=== PATIENT | male | born 1980 | race Caucasian/White ===

== ENCOUNTER 2024-11-15 11:45 | Observation (INO) ==
[2024-11-15] MEDS: SODIUM CHLORIDE 0.9% 1,000 ML IV SCH ×2 (12:01→15:11)
--- NOTE | 2024-11-15 12:04 | Emergency Department Note ---
Impression & Plan Sepsis, Acute hypoxic respiratory failure, Pneumonia, Aspiration into airway ED Provider Note NAME: SB CHRISTOPHER AGE: 44 SEX: M : 1980 ARRIVES VIA: Walk-In INFORMANT: Patient ED PROVIDER(S): Jeevan Georges DO CHIEF COMPLAINT: weak s/p scope HPI: Patient is a 44-year-old male who presents to the ER for weakness. Patient was just scoped for routine colonoscopy today. Following the scope he was in postop and found to be hypoxic. Was placed on oxygen and then given a neb treatment and hypoxia resolved and was discharged. notes that on the way home he is shaking and felt short of breath and consequently did come in. He is complaining of left lower lobe chest pain as well as diffuse myalgias and arthralgias. Admits to an upset stomach. No dysuria, urgency, or frequency. No other exacerbating or remitting factors. ADDITIONAL HISTORY OBTAINED: Per HPI Chronic Medical/Social Conditions Affecting Care: Per HPI PAST MEDICAL HISTORY:See Below PAST SURGICAL HISTORY:See Below FAMILY HISTORY:See Below SOCIAL HISTORY:See Below HOME MEDICATIONS:See Below ALLERGIES:See Below VITALS:See Below PHYSICAL EXAMINATION: GENERAL: Laying in bed, ill-appearing, alert moving all extremities EYE EXAM: normal conjunctiva. PERRL and EOM's grossly intact. OROPHARYNX: mucous membranes are moist NECK: supple, no nuchal rigidity, no adenopathy, non-tender LUNGS: Clear to auscultation. Normal chest wall mechanics HEART: no murmurs, S1 normal and S2 normal ABDOMEN: abdomen soft, non-tender, normo-active bowel sounds, no masses, no rebound or guarding. BACK: Back is symmetrical on inspection and there is no deformity, no midline tenderness, no CVA tenderness. SKIN: no rashes and no bruising UPPER EXTREMITIES: upper extremities are grossly normal. LOWER EXTREMITIES: Calves are equal bilaterally NEURO EXAM: Normal sensorium, cranial nerves II-XII grossly intact, normal speech, no gross weakness of arms, no gross weakness of legs. MEDICAL DECISION MAKING: Patient is a 44-year-old male who presents ER for the above-stated complaint. IV was established blood work was obtained. Labs show leukocytosis 17,000. No significant anemia. INR unremarkable. BMP with a lactate which was elevated. LFTs and bilirubin were fairly unremarkable. Viral panel was negative. Per patient's who provided additional history patient was discharged from [facility] after neb treatment. He was hypoxic after the scope and the neb treatment resolved this. They were going home and the patient was feeling worse and consequently he came in here. Upon arrival he is found to be hypotensive with systolic pressures in the 60s and hypoxic at 80%. He was given 2 L of IV fluids as well as IV antibiotics. Chest x-ray was obtained and did confirm a left mid lobe infiltrate. Case was discussed with the hospitalist for further evaluation management treatment. Blood pressures did rebound. Patient did feel significantly better. Consults/Care Managements Discussions: Per [facility] Triage Nursing notes reviewed. Limited review of prior medical records performed Vital Signs: reviewed and remarkable for hypoxic, hypotensive Differential diagnosis: Differential diagnosis includes etiologies such as sepsis, UTI, pneumonia, metabolic, electrolyte abnormalities, cardiac sources, intracerebral event, toxicologic, neurological, as well as others were entertained. ER treatment provided: See below Diagnostics interpreted by me include EKG and cardiac monitoring as listed below: -Cardiac Monitoring: An order was placed for continuous cardiac monitoring. The monitor shows a rate of 80 with sinus rhythm. -ECG: none -Laboratory studies:Interpreted by me as stated above in MDM and shown below. Imaging studies: Xrays: As interpreted by me: Portable AP upright 1 view of the chest shows left mid lobe infiltrate CTs show: none Procedures:none Critical Care: I have personally spent 75 minutes of critical care time in the direct management of this patient. This includes bedside care, interpretation of diagnostic studies, and testing, discussion with consultants, patient, and family members, and other required patient management activities. This 75 minutes is in excess of all separately billable procedures. Past Med/Surg History Problem List (Updated 11/15/24 @ 17:18 by Jeevan Georges DO) Aspiration into airway (Acute) Pneumonia (Acute) Acute hypoxic respiratory failure (Acute) Sepsis (Acute) Social History Smoking Status: Never smoker Second Hand Exposure: No; Do You Dip or Chew Tobacco: No; Hx Alcohol Use: Yes Alcohol type: beer Hx Substance Use: No Preferred Language: [place] Communication Ability: Effective Director Of Industrial Relations Required: No Beliefs That Will Affect Care: None Current Living Situation: Spouse Feels Safe at Home: Yes Assistive Devices: None Allergies Allergies Allergy/AdvReac Type Severity Reaction Status Date / Time No Known Allergies Allergy Unverified 11/15/24 13:15 Home Meds Home Medications Medication Instructions Recorded Confirmed Fish Oil 1 cap PO DAILY 11/15/24 11/15/24 Glucosamine 1 tab PO DAILY 11/15/24 11/15/24 sodium,potassium,mag sulfates 17.5 1 oz PO UD 11/15/24 11/15/24 gram-3.13 gram-1.6 gram oral soln tirzepatide (weight loss) 7.5 7.5 mg subcut WK 11/15/24 11/15/24 mg/0.5 mL subcutaneous pen injector (Zepbound) Results & Data (ED) Vital Signs Vital Signs - 24 hr 11/15/24 11:46 11/15/24 12:10 11/15/24 12:15 Temperature 36.4 C L Temperature Source Oral Pulse Rate 84 99 H Pulse Rate from SpO2 Sensor 95 H Respiratory Rate 19 26 H Respiratory Effort / Characteristics Non-Labored Spontaneous Respiratory Depth Normal Respiratory Pattern Regular Blood Pressure 64/41 L 122/66 Blood Pressure Mean 48 89 Blood Pressure Position Sitting Pulse Oximetry 86 L 98 Oxygen Delivery Method Room Air Sepsis Recent Fever Within 48 Hours No Sepsis New/Unexplained Change in Mental Status No Sepsis Action Taken by Nursing No Action Required 11/15/24 12:15 11/15/24 12:21 11/15/24 12:21 Temperature Temperature Source Pulse Rate Pulse Rate from SpO2 Sensor Respiratory Rate Respiratory Effort / Characteristics Respiratory Depth Respiratory Pattern Blood Pressure 102/76 102/76 102/76 Blood Pressure Mean 92 83 83 Blood Pressure Position Pulse Oximetry Oxygen Delivery Method Sepsis Recent Fever Within 48 Hours Sepsis New/Unexplained Change in Mental Status Sepsis Action Taken by Nursing 11/15/24 12:23 11/15/24 12:25 11/15/24 12:25 Temperature Temperature Source Pulse Rate 101 H Pulse Rate from SpO2 Sensor Respiratory Rate Respiratory Effort / Characteristics Respiratory Depth Respiratory Pattern Blood Pressure 120/72 120/72 Blood Pressure Mean 77 77 Blood Pressure Position Pulse Oximetry Oxygen Delivery Method Sepsis Recent Fever Within 48 Hours Sepsis New/Unexplained Change in Mental Status Sepsis Action Taken by Nursing 11/15/24 12:27 11/15/24 12:30 11/15/24 12:30 Temperature Temperature Source Pulse Rate 88 Pulse Rate from SpO2 Sensor 86 Respiratory Rate 24 Respiratory Effort / Characteristics Respiratory Depth Respiratory Pattern Blood Pressure 117/71 117/71 Blood Pressure Mean 84 84 Blood Pressure Position Pulse Oximetry 100 Oxygen Delivery Method Sepsis Recent Fever Within 48 Hours Sepsis New/Unexplained Change in Mental Status Sepsis Action Taken by Nursing 11/15/24 12:49 Temperature 37.3 C Temperature Source Oral Pulse Rate Pulse Rate from SpO2 Sensor Respiratory Rate Respiratory Effort / Characteristics Respiratory Depth Respiratory Pattern Blood Pressure Blood Pressure Mean Blood Pressure Position Pulse Oximetry Oxygen Delivery Method Sepsis Recent Fever Within 48 Hours Sepsis New/Unexplained Change in Mental Status Sepsis Action Taken by Nursing Laboratory Data 11/15/24 11:59 11/15/24 11:59 Lab Results 11/15/24 11/15/24 11/15/24 Range/Units 11:54 11:59 12:10 WBC 17.61 H (4.8-10.8) K/ul RBC 5.75 (4.70-6.10) M/uL Hgb 17.7 (14.0-18.0) g/dl POC Hgb 16.7 (14.0-18.0) g/dl Hct 48.2 (42.0-52.0) % POC Hct 49 (42-52) % MCV 83.8 (80.0-100.0) fL MCH 30.8 (25.0-34.0) pg MCHC 36.7 H (32.0-36.0) g/dL RDW Std Deviation 37.0 (36.4-46.3) fL RDW Coeff of Emmanuel 12.3 (11.5-14.5) % Plt Count 285 (130-400) K/uL MPV 9.5 (9.4-12.4) fL Immature Gran % (Auto) 0.4 % Neut % (Auto) 83.7 % Lymph % (Auto) 9.8 % Banks % (Auto) 5.5 % Eos % (Auto) 0.2 % Baso % (Auto) 0.4 % Neut # (Auto) 14.75 H (1.40-6.50) K/uL Lymph # (Auto) 1.73 (1.20-3.40) K/uL Banks # (Auto) 0.96 H (0.11-0.59) K/uL Eos # (Auto) 0.03 (0.00-0.50) K/uL Baso # (Auto) 0.07 (0.00-0.20) K/uL Immature Gran # (Auto) 0.07 (0.01-0.20) K/uL PT 10.9 (9.0-12.0) Seconds INR 1.0 (0.9-1.1) POC Sodium 141 (135-144) mmol/L Sodium 140 (136-145) mmol/L POC Potassium 3.6 (3.3-5.0) mmol/L Potassium 3.7 (3.5-5.1) mmol/L POC Chloride 100 L (101-112) mmol/L Chloride 103 (98-107) mmol/L Carbon Dioxide 29 (21-32) mmol/L POC Total CO2 25 (24-31) mmol/L Anion Gap 8 (3-11) POC Anion Gap 20.0 (16-25) mmol/L POC BUN 19 H (7-18) mg/dl BUN 19 (6-23) mg/dl Creatinine 1.08 (0.6-1.4) mg/dl POC Creatinine 1.3 (0.6-1.3) mg/dl Est Cr Clr Drug Dosing Not Reportable eGFR 86.24 BUN/Creatinine Ratio 17.6 (10-20) Glucose 114 H (70-99(Fasting)) mg/dl POC Glucose (other) 115 H (70-99) mg/dl Lactate 3.1 H* (0.4-2.0) mmol/L Calcium 9.3 (8.6-10.3) mg/dl POC Ioniz Calcium Eliana 1.18 (1.12-1.32) mmol/l Magnesium 1.9 (1.7-2.4) mg/dl Total Bilirubin 2.2 H (0.2-1.0) mg/dl Direct Bilirubin 0.3 H (0-0.2) mg/dl AST 26 (13-39) U/L ALT 24 (7-52) U/L Alkaline Phosphatase 42 (34-104) U/L Troponin I High Sens 3.4 (0-20) pg/ml Total Protein 7.0 (6.0-8.3) gm/dl Albumin 4.4 (3.4-5.0) gm/dl Procalcitonin 0.06 (0-0.5) ng/ml SARS-CoV-2 (PCR) (Negative) Influenza Type A (PCR) (Neg) Influenza Type B (PCR) (Neg) RSV (RT-PCR) (Neg) 11/15/24 Range/Units 12:12 WBC (4.8-10.8) K/ul RBC (4.70-6.10) M/uL Hgb (14.0-18.0) g/dl POC Hgb (14.0-18.0) g/dl Hct (42.0-52.0) % POC Hct (42-52) % MCV (80.0-100.0) fL MCH (25.0-34.0) pg MCHC (32.0-36.0) g/dL RDW Std Deviation (36.4-46.3) fL RDW Coeff of Emmanuel (11.5-14.5) % Plt Count (130-400) K/uL MPV (9.4-12.4) fL Immature Gran % (Auto) % Neut % (Auto) % Lymph % (Auto) % Banks % (Auto) % Eos % (Auto) % Baso % (Auto) % Neut # (Auto) (1.40-6.50) K/uL Lymph # (Auto) (1.20-3.40) K/uL Banks # (Auto) (0.11-0.59) K/uL Eos # (Auto) (0.00-0.50) K/uL Baso # (Auto) (0.00-0.20) K/uL Immature Gran # (Auto) (0.01-0.20) K/uL PT (9.0-12.0) Seconds INR (0.9-1.1) POC Sodium (135-144) mmol/L Sodium (136-145) mmol/L POC Potassium (3.3-5.0) mmol/L Potassium (3.5-5.1) mmol/L POC Chloride (101-112) mmol/L Chloride (98-107) mmol/L Carbon Dioxide (21-32) mmol/L POC Total CO2 (24-31) mmol/L Anion Gap (3-11) POC Anion Gap (16-25) mmol/L POC BUN (7-18) mg/dl BUN (6-23) mg/dl Creatinine (0.6-1.4) mg/dl POC Creatinine (0.6-1.3) mg/dl Est Cr Clr Drug Dosing eGFR BUN/Creatinine Ratio (10-20) Glucose (70-99(Fasting)) mg/dl POC Glucose (other) (70-99) mg/dl Lactate (0.4-2.0) mmol/L Calcium (8.6-10.3) mg/dl POC Ioniz Calcium Eliana (1.12-1.32) mmol/l Magnesium (1.7-2.4) mg/dl Total Bilirubin (0.2-1.0) mg/dl Direct Bilirubin (0-0.2) mg/dl AST (13-39) U/L ALT (7-52) U/L Alkaline Phosphatase (34-104) U/L Troponin I High Sens (0-20) pg/ml Total Protein (6.0-8.3) gm/dl Albumin (3.4-5.0) gm/dl Procalcitonin (0-0.5) ng/ml SARS-CoV-2 (PCR) NEGATIVE (Negative) Influenza Type A (PCR) Negative (Neg) Influenza Type B (PCR) Negative (Neg) RSV (RT-PCR) Negative (Neg) Administered Medications Sodium Chloride (Nss) 1,000 mls @ 100 mls/hr IV .Q10H JERRI Stop: 11/16/24 13:29 Last Admin: 11/15/24 15:11 Dose: 100 mls/hr Documented By: BUCKY Sodium Chloride (Nss) 1,000 mls @ 999 mls/hr IV .Q1H1M ONE Stop: 11/15/24 17:41 Last Admin: 11/15/24 16:50 Dose: 999 mls/hr Documented By: BUCKY Discontinued Medications Albuterol (Albuterol 0.083% Nebu Soln 3 Ml Vial) 2.5 mg NEB Q6H JERRI; Protocol Stop: 12/15/24 13:14 Last Admin: 11/15/24 14:51 Dose: Not Given Documented By: ANGELITA Sodium Chloride (Nss) 1,000 mls @ 999 mls/hr IV .Q1H1M JERRI Stop: 11/15/24 14:00 Last Infusion: 11/15/24 13:20 Dose: Infused Documented By: Admin: 11/15/24 12:05 Dose: 999 mls/hr Documented By: Infusion: 11/15/24 12:05 Dose: Infused Documented By: Admin: 11/15/24 12:01 Dose: 999 mls/hr Documented By: ADAMARIS Piperacillin Sod/Tazobactam Sod (Zosyn) 4.5 gm in 100 mls @ 200 mls/hr IV NOW ONE; Protocol Stop: 11/15/24 13:02 Last Infusion: 11/15/24 13:20 Dose: Infused Documented By: Admin: 11/15/24 12:43 Dose: 200 mls/hr Documented By: MICHEL Ketorolac Tromethamine (Ketorolac Tromethamine 15 Mg/Ml Vial) 15 mg IV NOW ONE Stop: 11/15/24 12:12 Last Admin: 11/15/24 12:16 Dose: 15 mg Documented By: BRIANNAW Morphine Sulfate (Morphine Sulfate 4 Mg/Ml 1 Ml Carp\Vial) 4 mg IV NOW STA Stop: 11/15/24 12:12 Last Admin: 11/15/24 12:16 Dose: 4 mg Documented By: MICHEL Ondansetron HCl (Ondansetron Inj 2 Mg/Ml 2 Ml Vial) 4 mg IV NOW STA Stop: 11/15/24 12:12 Last Admin: 11/15/24 12:16 Dose: 4 mg Documented By: MICHEL Imaging Data Radiologist's Impression: Chest X-Ray 11/15/24 11:57 XR chest 1V portable CLINICAL HISTORY: Sepsis COMPARISON STUDY: None FINDINGS: Heart size and pulmonary vasculature are normal. There is patchy consolidation at the left lower lung. No pleural effusion or pneumothorax. IMPRESSION: Pneumonia on the left. Follow-up to resolution recommended. ACT 112: Negative or not required by law. Electronically signed by: Manpreet Porter M.D. 11/15/2024 12:23 PM Discharge Plan Visit Data Chief Complaint: GI Assessment Stated Complaint: GI ASSESSMENT ED Provider: Jeevan Georges Discharge Problem: Sepsis, Acute hypoxic respiratory failure, Pneumonia, Aspiration into airway Patient Disposition: Admitted As Inpatient Discharge Instructions Interventions: ED Discharge Assessment Last Done: 11/15/24 14:10 Discharge Problem: Sepsis Qualifiers: Sepsis type: sepsis due to unspecified organism Sepsis acute organ dysfunction status: unspecified Qualified Code(s): A41.9 - Sepsis, unspecified organism Pneumonia Qualifiers: Pneumonia type: due to unspecified organism Laterality: unspecified laterality Lung location: unspecified part of lung Qualified Code(s): J18.9 - Pneumonia, unspecified organism Aspiration into airway Qualifiers: Encounter type: initial encounter Qualified Code(s): T17.908A - Unspecified foreign body in respiratory tract, part unspecified causing other injury, initial encounter
[2024-11-15] MEDS: MoRPHine SULFATE 4 MG/ML 1 ML CARP\\VIAL IV STA (12:16)
[2024-11-15] MEDS: ONDANSETRON INJ 2 MG/ML 2 ML VIAL IV STA (12:16)
[2024-11-15] MEDS: KETOROLAC TROMETHAMINE 15 MG/ML VIAL IV ONE (12:16)
[2024-11-15 12:18] LABS: Basophils # (auto) 0.07 K/uL (0.00-0.20); Basophils % (auto) 0.4 %; Eosinophils # (auto) 0.03 K/uL (0.00-0.50); Eosinophils % (auto) 0.2 %; Hematocrit (blood only) 48.2 % (42.0-52.0); Hemoglobin 17.7 g/dl (14.0-18.0); Immature Granulocytes # (auto) 0.07 K/uL (0.01-0.20); Immature Granulocytes % (auto) 0.4 %; Lymphocytes # (auto) 1.73 K/uL (1.20-3.40); Lymphocytes % (auto) 9.8 %; Mean Corpuscular Hemoglobin 30.8 pg (25.0-34.0); Mean Corpuscular Hgb Conc 36.7 g/dL (32.0-36.0); Mean Corpuscular Volume 83.8 fL (80.0-100.0); Mean Platelet Volume 9.5 fL (9.4-12.4); Monocytes # (auto) 0.96 K/uL (0.11-0.59); Monocytes % (auto) 5.5 %; Neutrophils # (auto) 14.75 K/uL (1.40-6.50); Neutrophils % (auto) 83.7 %; Platelet Count 285 K/uL (130-400); RDW Coefficient of Variation 12.3 % (11.5-14.5); Red Blood Count 5.75 M/uL (4.70-6.10); White Blood Count 17.61 K/ul (4.8-10.8)
[2024-11-15 12:22] LABS: iSTAT Creatinine 1.3 mg/dl (0.6-1.3); iSTAT Hemoglobin 16.7 g/dl (14.0-18.0); iSTAT Ionized Calcium 1.18 mmol/l (1.12-1.32); iSTAT Potassium 3.6 mmol/L (3.3-5.0)
--- NOTE | 2024-11-15 12:25 | XRay Report ---
XR chest 1V portable CLINICAL HISTORY: Sepsis COMPARISON STUDY: None FINDINGS: Heart size and pulmonary vasculature are normal. There is patchy consolidation at the left lower lung. No pleural effusion or pneumothorax. IMPRESSION: Pneumonia on the left. Follow-up to resolution recommended. ACT 112: Negative or not required by law. Electronically signed by: Manpreet Porter M.D. 11/15/2024 12:23 PM
[2024-11-15 12:42] LABS: Alanine Aminotransferase 24 U/L (7-52); Albumin Level 4.4 gm/dl (3.4-5.0); Alkaline Phosphatase 42 U/L (34-104); Anion Gap 8 (3-11); Aspartate Aminotransferase 26 U/L (13-39); BUN Creatinine Ratio 17.6 (10-20); Bilirubin Direct 0.3 mg/dl (0-0.2); Bilirubin,Total 2.2 mg/dl (0.2-1.0); Blood Urea Nitrogen 19 mg/dl (6-23); Calcium 9.3 mg/dl (8.6-10.3); Carbon Dioxide 29 mmol/L (21-32); Chloride 103 mmol/L (98-107); Glucose 114 mg/dl (70-99(Fasting)); Magnesium 1.9 mg/dl (1.7-2.4); Potassium 3.7 mmol/L (3.5-5.1); Sodium 140 mmol/L (136-145)
[2024-11-15] MEDS: PIPERACILLIN/TAZOBACTAM 4.5 GM/100 ML BAG IV ONE (12:43)
[2024-11-15 12:44] LABS: Prothrombin Time 10.9 Seconds (9.0-12.0)
[2024-11-15 12:47] LABS: Troponin I High Sensitivity 3.4 pg/ml (0-20)
--- NOTE | 2024-11-15 13:02 | Electrocardiogram Report ---
Test Reason : Blood Pressure : */* mmHG Vent. Rate : 61 BPM Atrial Rate : 61 BPM P-R Int : 140 ms QRS Dur : 82 ms QT Int : 410 ms P-R-T Axes : 35 71 38 degrees QTcB Int : 412 ms Poor data quality, interpretation may be adversely affected Normal sinus rhythm Normal ECG No previous ECGs available Confirmed by Nima Hanson ([id number]) on 11/15/2024 1:02:16 PM Referred By: REFERRED SELF Confirmed By: Nima Hanson
--- NOTE | 2024-11-15 13:17 | History & Physical Report ---
Date of Service November 15, 2024 Assessment & Plan (1) Sepsis: Plan: Assessment: 1. Sepsis. Secondary to #2. Patient had 2 L of normal saline. Will continue to hydrate as indicated. He has a lactic acidosis with a leukocytosis with hypotension tachycardia and tachypnea secondary to probable aspiration pneumonia. IV Zosyn for now. 2. Acute left lung pneumonia. Probable aspiration from periprocedural sedation from colonoscopy today. Sputum cultures. IV Zosyn. Speech therapy to evaluate the patient clear liquids until then and advance as tolerated. Nebulizer treatments. 3. History of childhood asthma. Has not had a problem for greater than 3 decad es. 4. Leukocytosis secondary to acute aspiration pneumonia. 5. Acute lactic acidemia multifactorial due to clinical sepsis, pneumonia, as well as GI prep for colonoscopy. 6. Hypotension and tachycardia secondary to sepsis. Treat symptomatically continue to aggressively hydrate. Had 2 L of saline. Will continue saline at 100 cc an hour for now. 7. Colon polyp. Per the patient's the patient had 1 polyp removed today. He has 0 abdominal pain with a benign abdominal exam. Patient instructed if he develops any abdominal symptomatology to notify nursing immediately stated to be updated and consider abdominal imaging. 8. Rule out COVID/influenza/RSV. This was ordered in the ER and these results are pending at the time of this dictation. Plan: As described above. Please refer to orders for further plan History of Present Illness Chief Complaint: Shortness of breath, cough, hypoxia, status post colonoscopy today Primary Care Provider: Huan Herndon MD This is a 44-year-old male who presented to an outpatient GI lab to undergo screening colonoscopy at the age of 44. Per the patient and his he had 1 polypectomy. Post procedurally the patient was short of breath and mildly hypoxic. He was given a nebulizer treatment at the GI lab and discharged to home. On the way home with the patient had increased shortness of breath diaphoresis and weakness. He is brought to the ER for further evaluation and treatment. Upon presentation emergency department he was found to be hypotensive at 64/41, hypoxemic at 86% on room air, tachypneic 26 breaths/min, and tachycardic at 101 bpm. Laboratory studies demonstrated a white blood cell count of greater than 17,000. He was given 2 L of normal saline. Given IV Zosyn. Chest x-ray showed a left lung pneumonia. She is also placed on supplemental oxygen therapy. We are called with the patient for further evaluation and treatment for pneumonia. Probable aspiration. Past medical history: Negative with exception of childhood asthma. Past surgical history: Lumbar discectomy. Social history: The patient is . Lives with his . He has 2 children ages 15 and 17. The patient denies use of tobacco or illicit street drugs. Seldom has an alcoholic drink. He is retired [employer] served over 20 years. He has had exposure to burn pits in the past but never had any pulmonary issues. No other occupational exposures that patient is aware of. Family medical history: Obtained and noncontributory to present illness. Allergies Allergy/AdvReac Type Severity Reaction Status Date / Time No Known Allergies Allergy Unverified 11/15/24 13:15 Past Med/Surg History Problem List (Updated 11/15/24 @ 13:14 by Angelo Hooper, PhD, DO) Sepsis Social History Smoking Status: Never smoker Preferred Language: Greek Feels Safe at Home: Yes Review of Systems Review of Systems: A 10 point review of system was obtained and unless otherwise stated here or in history of present illness are negative and noncontributory to chief complaint. Physical Exam Physical Exam: In General: In general pleasant 44-year-old male who appears ill. He is accompanied by his , examination. He is alert and oriented x 3 and interacts appropriately. HEENT: Normocephalic atraumatic pupils are equal round and reactive to light bilaterally. No scleral icterus no conjunctival injection external auditory canals are patent septum is in the midline nose is without discharge oral mucosa is pink and dry without lesion. NECK: Supple no rigidity no lymphadenopathy no thyromegaly no carotid bruits no JVD no masses. HEART: Regular rate and rhythm I do not appreciate any ectopy or rub. No murmur. LUNGS: Coarse rhonchi left mid and lower lung wu. No sandi wheezes. No cardiac rales. ABDOMEN: Soft nontender, no rebound, no peritoneal signs, positive bowel sounds, no appreciable organomegaly. EXTREMITIES: Intact, no peripheral cyanosis, clubbing or edema. Strength is 5 out of 5 in extremities x4, no pathological reflexes. NEUROLOGICAL: Cranial nerves II through XII are grossly intact with no focal deficit elicited upon examination. No tremor. Results & Data Results & Data Vital Signs (Past 12 Hours) Vital Signs Temp Pulse Resp BP Pulse Ox O2 Del Method 11/15/24 12:49 37.3 C 11/15/24 12:27 88 24 100 11/15/24 12:25 120/72 11/15/24 12:25 120/72 11/15/24 12:23 101 H 11/15/24 12:21 102/76 11/15/24 12:21 102/76 11/15/24 12:15 102/76 11/15/24 12:15 99 H 26 H 98 11/15/24 12:10 122/66 11/15/24 11:46 36.4 C L 84 19 64/41 L 86 L Room Air Code Status & VTE Plan Code Status Full code. I personally discussed with patient at the bedside VTE Prophylaxis Plan VTE Prophylaxis will be ordered: Yes PG Care Time/CCT Total # of Minutes Spent Total Time Spent with Patient: Total time spent is greater than 50% in coordination of care (as documented) at patient's floor/unit and/or counseling patient: Coding Level of Care Code 05228 INT INP/OBS CARE 3/75MIN Diagnoses Sepsis A41.9
[2024-11-15 13:22] LABS: Influenza A virus by PCR Negative (Neg); Influenza B virus by PCR Negative (Neg); RSV by PCR Negative (Neg); SARS CoV2 RNA(COVID-19) Ceph NEGATIVE (Negative)
[2024-11-15] MEDS: ALBUTEROL 0.083% NEBU SOLN 3 ML VIAL NEB SCH ×2 (14:51→20:06)
[2024-11-15] MEDS: SODIUM CHLORIDE 0.9% 1,000 ML IV ONE (16:50)
[2024-11-15] MEDS: PIPERACILLIN/TAZOBACTAM 4.5 GM/100 ML BAG IV SCH (18:00)
--- OUTSIDE RECORDS SUMMARY | 2024-11-15 18:41 | External Medical Summary | Continuity of Care Document ---
Author Name Unknown Organization [address] Address [address] [place] [address] [place], [place] [id number] Care Team Providers Care Street Light Inspector Name Role Phone Rory Herndon Primary Care Physician [phone] [id number] Date(s): 10/16/24 - 10/16/[address], [address] [place] [address] [phone] Encounter Diagnosis Annual physical exam(Discharge Diagnosis) - 10/16/24 Encounter for weight management(Discharge Diagnosis) - 10/16/24 Body mass index [BMI] 31.0-31.9, adult(Discharge Diagnosis) - 10/16/24 Screen for colon cancer(Discharge Diagnosis) - 10/16/24 Discharge Disposition: Home or Self Care Attending Physician: MD Herndon Ravishankar E Referring Physician: MD Herndon Ravishankar E Encounter Type: Clinic Allergies, Adverse Reactions, Alerts No Known Medication Allergies Assessment and Plan Extracted from: Title:CPE Author:MD Herndon Ravishankar E Da te:10/16/24 1. Annual physical exam - Healthy diet/exercise habits reviewed, handouts provided. - Imms reviewed, up to date - Fasting labs reviewed and wnl. - Warner now due. - Declines STI concern/desire for testing 2. Encounter for weight management - Pt wishes to remain on 7.5mg and work on diet/exercise which I am agreeable with - Recheck 6 months and titrate if indicated at that time 3. Screen for colon cancer - colonoscopy referral placed f/u 6months for wt check. Immunizations Given and Recorded Vaccine Date Status Refusal Reason tetanus/diphtheria/pertuss, acel (Tdap) 10/12/23 G iven influenza virus vaccine, inactivated 05/07/22 Give n influenza virus vaccine, inactivated 05/22/21 Give n SARS-CoV-2 (COVID-19) mRNA-1273 vaccine 05/29/21 R ecorded SARS-CoV-2 (COVID-19) mRNA-1273 vaccine 05/29/21 R ecorded SARS-CoV-2 (COVID-19) mRNA-1273 vaccine 09/03/20 R ecorded SARS-CoV-2 (COVID-19) mRNA-1273 vaccine 09/03/20 R ecorded SARS-CoV-2 (COVID-19) mRNA-1273 vaccine 08/06/20 R ecorded SARS-CoV-2 (COVID-19) mRNA-1273 vaccine 08/06/20 R ecorded Medications glucosamine Start: 02/20/24 8:02:00 AM EDT Start Date: 02/20/24 Status: Ordered Repeat number: 1 Nitro TD Patch-A 0.1 mg/hr transdermal film, extended release Start: 05/28/24 10:03:00 AM EST, 0.25 patch, topical, Daily, Disp# 10 patch, Refills: 0, FOR 12 TO 14 HOURS. REMOVE EACH DAY FOR 10 TO 12 HOURS, Pharmacy: [id number] Start Date: 05/28/24 Status: Ordered Quantity: 10.0 Unit: patch Repeat number: 1 [place]-3 Fish Oil Start: 02/20/24 8:02:00 AM EDT Start Date: 02/20/24 Status: Ordered Repeat number: 1 Zepbound Pen 7.5 mg/0.5 mL subcutaneous solution Start: 09/21/24 9:05:00 AM EST, 7.5 mg =, subQ, q7days, Disp# 2 mL, Refills: 3, Pharmacy: [id number] Start Date: 09/21/24 Status: Ordered Quantity: 2.0 Unit: mL Repeat number: 1 Mental Status 10/16/24 Barriers to Learning one year None evide nt Mandatory Health Literacy Documentation Yes Health Literacy Communication Barriers N ever Primary Language Syriac Problem List Condition Confirmation Course Effective Dates Status Health St atus Informant GERD without esophagitis Confirmed Active Elevated LDL cholesterol level Confirmed Active Diagnosis Diagnosis Type Effective Dates Health Status Clinical Service Informant Body mass index [BMI] 31.0-31.9, adult Discharge Diagnosis 10/16/24 Non-Specified Screen for colon cancer Discharge Diagnosis 10/16/24 Non-Specified Annual physical exam Discharge Diagnosis 10/16/24 Non-Specified Encounter for weight management Discharge Diagnosis 10/16/24 Non-Specified Procedures Procedure Date Related Diagnosis Body Site Status ASSET MANAGER STDY UNATTENDED 1 02/17/21 Com pleted Lumbar discectomy 07/25/09 Complet ed 1impression: findings are consistant with mild obstructive sleep apnea high heart rate variability, may be sugestive of bradytahycardia and or atrial fibrillation Vital Signs Most recent to oldest [Reference Range]: 1 Height 173.2 cm (10/16/24 8:01 AM) Patient Weight 95.4 kg (10/16/24 8:01 AM) Body Mass Index 31.8 kg/m2 (10/16/24 8:01 AM) Temperature [36.5-37.9 DegC] 35.9 DegC *LOW* (10/16/24 8:01 AM) Heart Rate 66 bpm (10/16/24 8:01 AM) Blood Pressure 110/68mmHg (10/16/24 8:01 AM) Cuff Pulse Pressure 42 mmHg (10/16/24 8:01 AM) Social History Social History Type Response Smoking Status Never smoked cigaret terese Sex Sex Representation Male (finding) FCM Outpt Note * MD Yanick, Rory E: PERFORM Event Display: FCM Outpt Note Authored Date: [id number] Chief Complaint CPE History of Present Illness Ruel is a 44yoM here today for annual CPE. He was last seen 05/2024 for weight loss f/u on zepbound and has continued with this with successful transition to 7.5mg dose. He had labs done ahead of today's visit which show normal glucose at 95 and cholesterol profile all within normal limits. He is now 44yo so would be recommended for colorectal cancer screening. Imms reviewed and UTD. Diet/Exercise - Trying to stay active with regular exercise at work (primarily walking) and eating better. More protein rich diet. Tobacco/Alcohol - No tobacco use. Rare alcohol. No drug use. Review of Systems 10/14pt ROS reviewed/negative except as noted in HPI. Physical Exam Vitals & Measurements T: 35.9 °C HR: 66 (Monitored) BP: 110/68 SpO2: 97% HT: 173.2 cm WT: 95.400 kg (Dosing) WT: 95.4 kg BMI: 31.8 PHQ2 Data (Data Documented on:10/16/2024 08:00) Emotional health assessment NEGATIVE GENERAL APPEARANCE: The patient is alert, oriented and in no acute distress. VITALS: As above. HEENT: Head is normocephalic/atraumatic. PERRL, EOM-I. Oropharynx clear without lesions. NECK: Supple without lymphadenopathy. Thyroid wnl. CARDIOVASCULAR: Regular rate and rhythm, no m/r/g. +2 radial pulses. LUNGS: Clear to auscultation bilaterally. No wheezes/rhales/rhonchi. ABDOMEN: Soft, nontender, nondistended with normal bowel sounds. No rebound/guarding. EXTREMITIES: No cyanosis, clubbing or edema. NEUROLOGICAL: Grossly non-focal exam. SKIN: Warm and dry without any rash Assessment/Plan 1. Annual physical exam - Healthy diet/exercise habits reviewed, handouts provided. - Imms reviewed, up to date - Fasting labs reviewed and wnl. - Warner now due. - Declines STI concern/desire for testing 2. Encounter for weight management - Pt wishes to remain on 7.5mg and work on diet/exercise which I am agreeable with - Recheck 6 months and titrate if indicated at that time 3. Screen for colon cancer - colonoscopy referral placed f/u 6months for wt check. Problem List/Past Medical History Ongoing Elevated LDL cholesterol level GERD without esophagitis Procedure/Surgical History •ASSET MANAGER ISAI UNATTENDED| Service Date: 02/17/2021•Lumbar discectomy| Service Date: 07/25/2009 Medications glucosamine nitroglycerin(Nitro TD Patch-A 0.1 mg/hr transdermal film, extended release), 0.25 patch, topical, Daily omega-3 polyunsaturated fatty acids([place]-3 Fish Oil) tirzepatide(Zepbound Pen 7.5 mg/0.5 mL subcutaneous solution), 7.5 mg, subQ, q7days Allergies No Known Medication Allergies Social History Smoking Status Never smoked cigarettes Alcohol - Low Risk Exercise - Regular exercise Substance Abuse - Denies Substance Abuse Tobacco - Denies Tobacco Use Intake (IView) Smoking History Cigarette smoker: Never smoked cigarettes Tobacco Product Use: Never used other tobacco products SHX E-Cigarette Use: Never Family History Cancer: PGM. Heart attack: Father.Negative: Mother, Sister, Brother and Unknown. Health Status Family Member(s) Immunizations Vaccine Date Status tetanus/diphtheria/pertuss, acel (Tdap) 10/12/2023 Given influenza virus vaccine, inactivated 05/07/2022 Given SARS-CoV-2 (COVID-19) mRNA-1273 vaccine 05/29/2021 Recorded SARS-CoV-2 (COVID-19) mRNA-1273 vaccine 05/29/2021 Recorded influenza virus vaccine, inactivated 05/22/2021 Given SARS-CoV-2 (COVID-19) mRNA-1273 vaccine 09/03/2020 Recorded SARS-CoV-2 (COVID-19) mRNA-1273 vaccine 09/03/2020 Recorded SARS-CoV-2 (COVID-19) mRNA-1273 vaccine 08/06/2020 Recorded SARS-CoV-2 (COVID-19) mRNA-1273 vaccine 08/06/2020 Recorded Recommendations Health Maintenance Pending (in the next year) OverDue Adult Influenza Vaccine due 01/23/24 and every 1 year Due Adult Social Determinants of Health Screening due 10/16/24 Unknown Frequency Colorectal Cancer Screening due 10/16/24 Unknown Frequency Seasonal COVID 19 Vaccine due 10/16/24 Unknown Frequency Satisfied (in the past 1 year) Satisfied Body Mass Index on 10/16/24. Satisfied by FER Vega Angela Hepatitis C Screening on 09/20/24. Satisfied by Contributor_system, [email or web address] Lipid Screening on 09/20/24. Satisfied by Contributor_system, [email or web address] Electronic Signature on File Electronically Reviewed/Signed by: Rory Herndon MD Author Signature Dt/Tm:10/16/2024 08:18 AM Department of Family Medicine [facility] Patient Care team information Care Team Personnel Name: MD Herndon Ravishankar E Position: Physician Member Role: Primary Care Provider Address: [address] [place] [address] Telecom: [phone] Care Team Related Persons Name: LUIS CHRISTOPHER Name: EAMON CHRISTOPHER Insurance Providers Guarantor name: RUEL Irene CHRISTOPHER Health Plan Information #: 2 Payer: [facility] Member Number: [id number] Policy Number: ALFREDO Group Number: NA Health Plan Information #: 1 Payer: [facility] Member Number: [id number] Policy Number: NA Group Number: [id number]"
--- OUTSIDE RECORDS SUMMARY | 2024-11-15 18:41 | External Medical Summary | Continuity of Care Document ---
Author Name Unknown Organization [address] Address [address] [place] [phone] Care Team Providers Care Human Machine Interface Engineer Name Role Phone Rory Herndon Primary Care Physician [phone] [id number] Date(s): 06/13/24 - 06/13/[address] [place] [address], [address] [place] [address] [phone] Encounter Diagnosis Body mass index [BMI] 31.0-31.9, adult(Discharge Diagnosis) - 06/13/24 Obesity (BMI 30-39.9)(Discharge Diagnosis) - 06/13/24 Elevated LDL cholesterol level(Discharge Diagnosis) - 06/13/24 Screening for diabetes mellitus(Discharge Diagnosis) - 06/13/24 Need for hepatitis C screening test(Discharge Diagnosis) - 06/13/24 Discharge Disposition: Home or Self Care Attending Physician: MD Herndon Ravishankar E Referring Physician: MD Herndon Ravishankar E Allergies, Adverse Reactions, Alerts No Known Medication Allergies Assessment and Plan Extracted from: Title:Office Visit Note Author:MD Herndon Ravishan kar E Date:06/13/24 1. Obesity (BMI 30-39.9) - Increase zepbound to 7.5mg weekly going forward - Continue diet/exercise - Recheck weight 4months 2. Elevated LDL cholesterol level - FLP ordered ahead of next visit for CPE 3. Screening for diabetes mellitus - FBS ordered ahead of next visit for CPE 4. Need for hepatitis C screening test - Hep C one time screen ordered ahead of next visit for CPE f/u 4months for CPE. Time: 20mins 5 - pre-visit chart review 10 - visit, inclusive of history, exam, and discussion of assessment/plan 5 - post-visit documentation/orders/coordination of care Immunizations Given and Recorded Vaccine Date Status [...] AM EDT Start Date: 02/20/24 Status: Ordered Nitro TD Patch-A 0.1 mg/hr transdermal film, extended release Start: 05/28/24 10:03:00 AM EST, 0.25 patch, topical, Daily, Disp# 10 patch, Refills: 0, FOR 12 TO 14 HOURS. REMOVE EACH DAY FOR 10 TO 12 HOURS, Pharmacy: [id number] Start Date: 05/28/24 Status: Ordered [place]-3 Fish Oil Start: 02/20/24 8:02:00 AM EDT Start Date: 02/20/24 Status: Ordered Zepbound 5 mg/0.5 mL subcutaneous solution Start: 03/02/24 8:17:00 AM EDT, 5 mg =, subQ, q7days, Disp# 2 mL, Refills: 3, Pharmacy: [id number] Start Date: 03/02/24 Status: Ordered Zepbound Pen 7.5 mg/0.5 mL subcutaneous solution Start: 06/13/24 8:51:00 AM EST, 7.5 mg =, subQ, q7days, Disp# 2 mL, Refills: 3, Pharmacy: [id number] Start Date: 06/13/24 Status: Ordered Mental Status 06/13/24 Barriers to Learning one year None evide nt Mandatory Health Literacy Documentation Yes Health Literacy Communication Barriers N ever Primary Language Turkish Problem List Condition Confirmation Course Effective Dates Status Health St atus Informant GERD without esophagitis Confirmed Active Elevated LDL cholesterol level Confirmed Active Diagnosis Diagnosis Type Effective Dates Health Status Clinical Service Informant Body mass index [BMI] 31.0-31.9, adult Discharge Diagnosis 06/13/24 Non-Specified Obesity (BMI 30-39.9) Discharge Diagnosis 06/13/24 Non-Specified Screening for diabetes mellitus Discharge Diagnosis 06/13/24 Need for hepatitis C screening test Discharge Diagnosis 06/13/24 Non-Specified Elevated LDL cholesterol level Discharge Diagnosis 06/13/24 Procedures Procedure Date Related Diagnosis Body Site Status WIND TUNNEL ENGINEER STDY UNATTENDED 1 02/17/21 Com pleted Lumbar discectomy 07/25/09 Complet ed 1impression: findings are consistant with mild obstructive sleep apnea high heart rate variability, may be sugestive of bradytahycardia and or atrial fibrillation Vital Signs Most recent to oldest [Reference Range]: 1 Height 173 cm (06/13/24 8:40 AM) Patient Weight 94.5 kg (06/13/24 8:40 AM) Body Mass Index 31.57 kg/m2 (06/13/24 8:40 AM) Heart Rate 88 bpm (06/13/24 8:40 AM) Respiratory Rate 20 br/min (06/13/24 8:40 AM) Blood Pressure 98/70mmHg (06/13/24 8:40 AM) Social History Social History Type Response Smoking Status Never smoked cigaret terese Sex Sex Representation Male (finding) [facility] Outpt Note * MD Yanick, Rory E: PERFORM Event Display: FCM Outpt Note Authored Date: [id number] Chief Complaint f/u weight loss History of Present Illness Ruel is a 44yoM here today to f/u zepbound which he's on 5mg and has been for some time. He feels he's plateaued and our office weights reflect this. He's made improvements to diet/exercise habits with help of this medication and feels lifestyle is in a good place but weight has stalled. Review of Systems ROS reviewed/negative except as noted in HPI. Physical Exam Vitals & Measurements HR: 88 (Monitored) RR: 20 BP: 98/70 SpO2: 99% HT: 173 cm WT: 94.500 kg (Dosing) WT: 94.5 kg BMI: 31.57 PHQ2 Data (Data Documented on:06/13/2024 08:38) Emotional health assessment NEGATIVE GENERAL APPEARANCE: The patient is alert, oriented and in no acute distress. VITALS: As above. HEENT: Head is normocephalic/atraumatic. CARDIOVASCULAR: +2 radial pulses. LUNGS: Respirations even and unlabored. EXTREMITIES: No cyanosis, clubbing or edema. NEUROLOGICAL: Grossly non-focal exam. SKIN: Warm and dry without any rash. Assessment/Plan 1. Obesity (BMI 30-39.9) - Increase zepbound to 7.5mg weekly going forward - Continue diet/exercise - Recheck weight 4months 2. Elevated LDL cholesterol level - FLP ordered ahead of next visit for CPE 3. Screening for diabetes mellitus - FBS ordered ahead of next visit for CPE 4. Need for hepatitis C screening test - Hep C one time screen ordered ahead of next visit for CPE f/u 4months for CPE. Time: 20mins 5 - pre-visit chart review 10 - visit, inclusive of history, exam, and discussion of assessment/plan 5 - post-visit documentation/orders/coordination of care Problem List/Past Medical History Ongoing Elevated LDL cholesterol level GERD without esophagitis Procedure/Surgical History •WIND TUNNEL ENGINEER STDY UNATTENDED| Service Date: 02/17/2021•Lumbar discectomy| Service Date: 07/25/2009 Medications glucosamine nitroglycerin(Nitro TD Patch-A 0.1 mg/hr transdermal film, extended release), 0.25 patch, topical, Daily omega-3 polyunsaturated fatty acids([place]-3 Fish Oil) tirzepatide(Zepbound 5 mg/0.5 mL subcutaneous solution), 5 mg, subQ, q7days, 3 refills tirzepatide(Zepbound Pen 7.5 mg/0.5 mL subcutaneous solution), 7.5 mg, subQ, q7days, 3 refills Allergies No Known Medication Allergies Social History Smoking Status Never smoked cigarettes Alcohol - Low Risk Exercise - Regular exercise Substance Abuse - Denies Substance Abuse Tobacco - Denies Tobacco Use Family History Cancer: PGM. Heart attack: Father.Negative: [...] next year) OverDue Adult Influenza Vaccine due 01/22/24 and every 1 year Due Adult COVID-19 Vaccination due 06/13/24 Unknown Frequency Adult Social Determinants of Health Screening due 06/13/24 Unknown Frequency Colorectal Cancer Screening due 06/13/24 Unknown Frequency Hepatitis C Screening due 06/13/24 One-time only Satisfied (in the past 1 year) Satisfied Adult Tdap/Td Vaccine on 10/12/23. Satisfied by JANN Cantrell Gillian Body Mass Index on 06/13/24. Satisfied by JANN Cantrell Gillian Lipid Screening on 10/12/23. Satisfied by Contributor_system, [email or web address] Electronic Signature on File Electronically Reviewed/Signed by: Rory Herndon MD Author Signature Dt/Tm:06/13/2024 08:59 AM Department of Family Medicine [facility] Patient Care team information Care Team Personnel Name: MD Yanick, Rory Florez Position: Physician Member Role: Primary Care Provider Address: [address] [place] [address] [place] Care Team Related Persons Name: LUIS CHRISTOPHER Name: EAMON CHRISTOPHER"
--- OUTSIDE RECORDS SUMMARY | 2024-11-15 18:41 | External Medical Summary | Continuity of Care Document ---
Author Name Unknown Organization [facility] [address] Address [address] [place], [place] [id number] Care Team Providers Care Communications Intern Name Role Phone Rory Herndon Primary Care Physician [phone] Encounter [facility] [id number] Date(s): 09/20/24 - 09/20/24 [facility] [address] [facility] [address] [facility] [address] [place], [place] [phone] Encounter Diagnosis Encounter for screening for diabetes mellitus(Final) - Encounter for screening for other viral diseases(Final) - Pure hypercholesterolemia, unspecified(Final) - Discharge Disposition: Home or Self Care Attending Physician: MD Herndon Ravishankar E Referring Physician: MD Herndon Ravishankar E Encounter Type: Clinic Allergies, Adverse Reactions, Alerts No Known Medication Allergies Immunizations Given and Recorded Vaccine Date Status [...] DAY FOR 10 TO 12 HOURS, Pharmacy: [id number] Start Date: 05/28/24 Status: Ordered Quantity: 10.0 Unit: patch Repeat number: 1 [place]-3 Fish Oil Start: 02/20/24 8:02:00 AM EDT Start Date: 02/20/24 Status: Ordered Repeat number: 1 Zepbound Pen 7.5 mg/0.5 mL subcutaneous solution Start: 09/21/24 9:05:00 AM EST, 7.5 mg =, subQ, q7days, Disp# 2 mL, Refills: 3, Pharmacy: [id number] Start Date: 09/21/24 Status: Ordered Quantity: 2.0 Unit: mL Repeat number: 1 Problem List Condition Confirmation Course Effective Dates Status Health St atus Informant GERD without esophagitis Confirmed Active Elevated LDL cholesterol level Confirmed Active Procedures Procedure Date Related Diagnosis Body Site Status REGISTERED NURSE CARDIAC STDY UNATTENDED 1 02/17/21 Com pleted Lumbar discectomy 07/25/09 [facility] ed 1impression: findings are consistant with mild obstructive sleep apnea high heart rate variability, may be sugestive of bradytahycardia and or atrial fibrillation Results Laboratory List Name Date Glucose Level (GLUCOSE) 09/20/24 Hepatitis C Antibody (HEP C AB) 09/20/24 Lipid Profile (LIPOPROTEINS) 09/20/24 Most recent to oldest [Reference Range]: 1 Non-HDL 125 mg/dL 1 (09/20/24 8:04 AM) Chol/HDL 4 (09/20/24 8:04 AM) Chol [125-200 mg/dL] 173 mg/dL (09/20/24 8:04 AM) Glu [74-106 mg/dL] 95 mg/dL 2 (09/20/24 8:04 AM) HCV Ab [NR] NONREACTIVE *Unknown* (09/20/24 8:04 AM) HDL [>35 mg/dL] 48 mg/dL (09/20/24 8:04 AM) LDL Chol, Calculated [50-130 mg/dL] 112 mg/dL (09/20/24 8:04 AM) TG [<200 mg/dL] 63 mg/dL (09/20/24 8:04 AM) 1Result Comment: Testing Performed By: [facility] [place], [address] [facility] [place] [address] 2Result Comment: Testing Performed By: Dept of Pathology [facility], [address] [facility] [place] [address] Social History Social History Type Response Smoking Status Never smoked cigaret terese Sex Sex Representation Male (finding) Patient Care team information Care Team Personnel Name: MD Yanick, Rory Florez Position: Physician Member Role: Primary Care Provider Address: [address] [place] [address] Telecom: [phone] Care Team Related Persons Name: LUIS CHRISTOPHER Name: EAMON CHRISTOPHER Insurance Providers Guarantor name: SB CHRISTOPHER Health Plan Information #: 1 Payer: [employer] Member Number: [id number] Policy Number: NA Group Number: [id number] Health Plan Information #: 2 Payer: [employer] Member Number: [id number] Policy Number: NA Group Number: NA
[2024-11-15] MEDS: ACETAMINOPHEN 325 MG TAB PO PRN (19:37)
[2024-11-15] MEDS: MELATONIN 3 MG TAB PO PRN (19:51)
[2024-11-15 22:35] LABS: Appearance Urine Turbid (Clear); Bilirubin Urine Negative (Negative); Blood Urine Negative (Negative); Color Urine Orange; Glucose Urine UA Negative (Negative); Ketones Urine Trace (Negative); Leukocyte Esterase Urine Negative (Negative); Nitrite Urine Negative (Negative); Protein Urine Trace (Negative); RBC Urine Automated 0-2 /hpf (0-2); Specific Gravity Urine 1.033 (1.000-1.030); Urobilinogen Urine Negative (Negative)
[2024-11-15 22:46] LABS: Amorphous Sediment Urine Present (None Prsent); Bacteria Urine Automated 2+ (None Seen)
[2024-11-15 22:47] LABS: Hyaline Casts Urine P /lpf (None Presnt); Mucus Urine Present (None Prsent)
[2024-11-16 06:15] LABS: Basophils # (auto) 0.04 K/uL (0.00-0.20); Basophils % (auto) 0.3 %; Eosinophils # (auto) 0.08 K/uL (0.00-0.50); Eosinophils % (auto) 0.6 %; Hematocrit (blood only) 38.1 % (42.0-52.0); Hemoglobin 13.9 g/dl (14.0-18.0); Immature Granulocytes # (auto) 0.08 K/uL (0.01-0.20); Immature Granulocytes % (auto) 0.6 %; Lymphocytes # (auto) 1.46 K/uL (1.20-3.40); Lymphocytes % (auto) 11.1 %; Mean Corpuscular Hgb Conc 36.5 g/dL (32.0-36.0); Mean Platelet Volume 9.6 fL (9.4-12.4); Monocytes # (auto) 0.93 K/uL (0.11-0.59); Monocytes % (auto) 7.1 %; Neutrophils # (auto) 10.57 K/uL (1.40-6.50); Neutrophils % (auto) 80.3 %; Platelet Count 188 K/uL (130-400); RDW Coefficient of Variation 12.3 % (11.5-14.5); RDW Standard Deviation 37.6 fL (36.4-46.3); Red Blood Count 4.48 M/uL (4.70-6.10); White Blood Count 13.16 K/ul (4.8-10.8)
[2024-11-16 07:13] LABS: Albumin Globulin Ratio 1.5 (0.9-2); Albumin Level 3.2 gm/dl (3.4-5.0); Bilirubin,Total 2.3 mg/dl (0.2-1.0); Calcium 7.7 mg/dl (8.6-10.3); Chol HDL Ratio 2.8 (0-5); Creatinine Clr Calc Pharmacy 118.6 ml/min; Globulin 2.1 gm/dl (2.5-4.0); Thyroid Stimulating Hormone 0.497 uIu/ml (0.300-4.500); Total Protein 5.3 gm/dl (6.0-8.3)
--- NOTE | 2024-11-16 12:43 | Communication Note ---
Date of Service: November 16, 2024 Stopped by to see patient. Had colonoscopy with removal of small, likely hyperplastic, polyp from rectum yesterday with intraprocedure coughing (like we frequently see). Not much fluid suctioned from patient during suction. Admitted with left lobe infiltrate from aspiration. Looks great today. Discharge when primary team is ready
--- NOTE | 2024-11-16 14:46 | Hospitalist Progress Note ---
Date of Service November 16, 2024 Assessment & Plan (1) Sepsis: Plan: 44-year-old male who presented with aspiration pneumonia following a colonoscopy. Met sepsis criteria initially, clinically improving on Zosyn. Sepsis 2/2 left lung aspiration pneumonia with hypoxia Hypoxic respiratory failure resolving In the setting of periprocedural sedation for colonoscopy Was treated with Zosyn, rapidly clinically improving. Will narrow to Unasyn. Remaining well with narrowed antibiotics and clinically stable transition to Augmentin and likely discharge 11/17 No hypoxia. Lungs remain coarse on the left side. Some cough Leukocytosis downtrending Creatinine normal Lactate normalized Normotensive ? Allergic reaction Following infusion of Zosyn in the morning 11/16 was the report of possible facial swelling. On provider exam do not see any facial swelling, and ENT exam she has not midline uvula and no lip or tongue swelling. He has no hives or itching. Remains on Zosyn and appears to be tolerating well at bedside he is being transitioned to Unasyn at next dose. Nursing will monitor overnight for any signs of penicillin allergy, no signs of this at time of bedside provider assessment. If this develops discontinue Unasyn and give methylprednisolone 125 mg IV x 1, Pepcid 20 mg x 1, Benadryl 50 mg IV x 1 and evaluate airway for any need for IM epi. S/p routine colonoscopy Abdomen soft, nontender. No signs of perforation or complication. Doing well. Continue outpatient GI follow-up DVT prophylaxis: SCDs, ambulate Admission and Anticipated Discharge Date Admission Date: November 15, 2024 Subjective Feeling well today. No shortness of breath. Does have some cough No abdominal pain. Passing flatus No fevers chills or sweats Feels greatly improved compared to when he came in Notes he was concerned as he felt somnolent and had to get nebulizer treatment after his colonoscopy, notes he rapidly deteriorated after returning home. Feels significantly improved this morning. He is not short of breath at time of visit There was some concern for some facial swelling this morning, this is not appreciated and he is currently infusing with Zosyn. Feels he is tolerating this well. No hives/itching/tongue swelling. Denies any known penicillin allergy Physical Exam Physical Exam: General: A&Ox3. NAD. Cooperative. No rash HEENT: Atraumatic, normocephalic. Vision and hearing grossly intact. No tongue/lip swelling. Uvula midline Pulm: Coarse in the left lower lobe, otherwise clear with good air movement symmetrical chest rise. No increased work of breathing. No respiratory distress. Cardiac: RRR, -mrg. Radial pulses intact and symmetrical. Abdominal: Nontender, nondistended, soft. BS present. Results & Data Results & Data Vital Signs (Past 12 Hours) Vital Signs Temp Pulse Pulse Resp BP Pulse Ox O2 Del Method 11/16/24 13:39 77 14 94 Room Air 11/16/24 12:00 36.7 C 87 18 112/71 96 Room Air 11/16/24 09:00 Room Air 11/16/24 08:12 37.2 C 90 16 104/66 91 Room Air 11/16/24 08:08 78 11/16/24 07:33 16 92 Room Air 11/16/24 03:15 36.6 C 78 16 103/65 95 Room Air PG Care Time/CCT Total # of Minutes Spent Total Time Spent with Patient: Total time spent is greater than 50% in coordination of care (as documented) at patient's floor/unit and/or counseling patient: Coding Level of Care Code 82557 SUB INP/OBS CARE 2/35MIN Diagnoses Sepsis A41.9 Sepsis acute organ dysfunction status: unspecified Sepsis type: sepsis due to unspecified organism (1) Sepsis Sepsis acute organ dysfunction status: unspecified Sepsis type: sepsis due to unspecified organism Qualified Code(s): A41.9 - Sepsis, unspecified organism
[2024-11-16] MEDS: AMPICILLIN/SULBACTAM SOD 3,000 MG/100 ML BAG IV SCH (22:08)
--- NOTE | 2024-11-17 08:05 | Discharge Summary ---
Discharge Summary Date of Service November 17, 2024 Principal Dx & Hospital Course #1 = Principal Diagnosis (1) Sepsis: 44-year-old male who presented with aspiration pneumonia following a colonoscopy. Met sepsis criteria initially, clinically improving on Zosyn. Sepsis 2/2 left lung aspiration pneumonia with hypoxia Hypoxic respiratory failure resolving In the setting of periprocedural sedation for colonoscopy Was treated with Zosyn, rapidly clinically improved. No hypoxia, afebrile x 24 hours, vital signs stable day of discharge. Was narrowed from Zosyn to Unasyn and then converted to Augmentin on discharge Care to discharge to complete 4 additional days of Augmentin twice daily with follow-up to PCP ? Allergic reaction Following infusion of Zosyn in the morning 11/16 was the report of possible facial swelling. On provider exam do not see any facial swelling, and ENT exam she has not midline uvula and no lip or tongue swelling. He has no hives or itching. Was transition to Unasyn and subsequently Augmentin with no signs of a llergic reaction. S/p routine colonoscopy Abdomen soft, nontender. No signs of perforation or complication. Doing well. Continue outpatient GI follow-up Admission HPI Per Admitting Provider This is a 44-year-old male who presented to an outpatient GI lab to undergo screening colonoscopy at the age of 44. Per the patient and his he had 1 polypectomy. Post procedurally the patient was short of breath and mildly hypoxic. He was given a nebulizer treatment at the GI lab and discharged to home. On the way home with the patient had increased shortness of breath diaphoresis and weakness. He is brought to the ER for further evaluation and treatment. Upon presentation emergency department he was found to be hypotensive at 64/41, hypoxemic at 86% on room air, tachypneic 26 breaths/min, and tachycardic at 101 bpm. Laboratory studies demonstrated a white blood cell count of greater than 17,000. He was given 2 L of normal saline. Given IV Zosyn. Chest x-ray showed a left lung pneumonia. She is also placed on supplemental oxygen therapy. We are called with the patient for further evaluation and treatment for pneumonia. Probable aspiration. Past medical history: Negative with exception of childhood asthma. Past surgical history: Lumbar discectomy. Social history: The patient is . Lives with his . He has 2 children ages 15 and 17. The patient denies use of tobacco or illicit street drugs. Seldom has an alcoholic drink. He is retired [employer] served over 20 years. He has had exposure to burn pits in the past but never had any pulmonary issues. No other occupational exposures that patient is aware of. Family medical history: Obtained and noncontributory to present illness. Discharge Exam General: A&Ox3. NAD. Cooperative. HEENT: Atraumatic, normocephalic. Vision and hearing grossly intact. No tongue/lip swelling. Uvula midline Pulm: Good air movement. No wheezes no increased work of breathing. No respiratory distress. Cardiac: RRR, -mrg. Radial pulses intact and symmetrical. Abdominal: Nontender, nondistended, soft Discharge Plan Discharge Items Patient Disposition: Home - Self-Care Reason For Visit: PNA Discharge Diagnosis: Aspiration pneumonia Activity: Resume your previous activity Non-emergency contact: Primary Care Provider Call non-emergency contact if: you have any medication questions, your symptoms worsen and your pain is not controlled Follow-up/Referrals: Huan Herndon MD [Primary Care Provider] - Diet: Regular Addtl Attending Provider Instructions: You were seen in the hospital for aspiration pneumonia. You rapidly improved on antibiotics. There was some concern for possible swelling reaction to Zosyn, a penicillin- based antibiotic but you did not have any hives, lip swelling, tongue swelling, wheezing or other signs of allergy and you had no facial swelling at time of provider reassessment. You were transitioned to Unasyn, and penicillin-based antibiotic and tolerated this well. This was converted to a oral equivalent called Augmentin on discharge. Please take Augmentin 875-125 mg by mouth twice daily for 4 additional days to complete 5 days of treatment. If you develop any new or worsening symptoms including fever, chills, sweats, chest pain, chest pressure, difficulty breathing, uncontrolled nausea/vomiting, rash, wheezing, passing out or nearly passing out, bleeding, black/bloody bowel movements, or other new or concerning symptoms please call your primary care physician, or call 911 for re-evaluation in the emergency department if you are very concerned. Pending Studies at Discharge: No Stand-Alone Forms: My [employer], Smoking Cessation Medications and DC Order Prescriptions: New amoxicillin-pot clavulanate 875-125 mg tablet 1 tab PO Q12H 4 Days Qty: 8 0RF Continued sodium,potassium,mag sulfates 17.5-3.13-1.6 gram recon soln 1 oz PO UD Rx Instructions: took yesterday 11/14 at 5pm and today 11/15 Zepbound 7.5 mg/0.5 mL pen injector 7.5 mg subcut WK Rx Instructions: hasnt used medications for about 3 weeks due to procedure Fish Oil 1 cap PO DAILY Rx Instructions: otc unknown dose Glucosamine 1 tab PO DAILY Rx Instructions: otc unknown dose. Discharge Orders: Discharge Order (Routine); Ordered 11/17/24 Ordered By: Garrick Villegas/Other Patient Handouts: What Is Pneumonia?, Treating Pneumonia Admission Data Admit Date/Time: 11/15/24 13:06 Attending Provider: Garrick Recinos Admit Provider: Angelo Hooper Primary Care Provider: Huan Herndon Other Providers: Angelo Hooper Other Interventions: Discharge Summary Assessment (RN) Last Done: 11/17/24 09:03 Hospital Stay Data Consultations 11/15/24 12:36 ED Decision to Admit Stat Discharge Instructions Given to Patient (Per Discharging Provider) You were seen in the hospital for aspiration pneumonia. You rapidly improved on antibiotics. There was some concern for possible swelling reaction to Zosyn, a penicillin- based antibiotic but you did not have any hives, lip swelling, tongue swelling, wheezing or other signs of allergy and you had no facial swelling at time of provider reassessment. You were transitioned to Unasyn, and penicillin-based antibiotic and tolerated this well. This was converted to a oral equivalent called Augmentin on discharge. Please take Augmentin 875-125 mg by mouth twice daily for 4 additional days to complete 5 days of treatment. If you develop any new or worsening symptoms including fever, chills, sweats, chest pain, chest pressure, difficulty breathing, uncontrolled nausea/vomiting, rash, wheezing, passing out or nearly passing out, bleeding, black/bloody bowel movements, or other new or concerning symptoms please call your primary care physician, or call 911 for re-evaluation in the emergency department if you are very concerned. Total Time Total Time Spent Total Time Spent (In Minutes): Time spend day of discharge 25 minutes including direct patient care, documentation, review of labs and images, and coordination of care. Coding Level of Care Code 02193 INP/OBS DISCH >30 MIN Diagnoses Sepsis A41.9 Sepsis acute organ dysfunction status: unspecified Sepsis type: sepsis due to unspecified organism
== END 2024-11-17 10:25 | disposition home or self-care (01) ==
LOC: ED 11:45 → INTOOBSV 13:06 → SUATTDRO 13:06 → 4W 13:06